=== PATIENT | male | born 1990 | race Caucasian/White ===

== ENCOUNTER 2021-09-05 12:19 | Outpatient (CLI) | payer BC, SELFPAY ==
--- NOTE | 2021-09-05 | VAS_PTH ---
PATIENT: LUCIANO LYN LOC: [facility] U#:[id number] AGE/SX: 31/M ROOM: RE09/05/[address]: Dr. Thien Wray MD : 1990 BED: DIS: 09/05/2021 SPEC #: [id number] RECD: 09/05/21 12:12 STATUS: YUKO SERENA #: [id number] DREW: 09/05/21 00:[address]: Thien Wray DEPT: SURGICAL PATHOLOGY RECD BY: Josr Hardy ENTERED: 09/05/21 14:21 SP TYPE: VAS OTHR DR: Dr. Crow Boateng MD Tissues: A - Vas deferens, NOS B - Vas deferens, NOS Procedures: Surgery Specimen Level II HEADER OPERATION: Bilateral partial vasectomy PRE-OP DIAGNOSIS: Sterilization TISSUE SUBMITTED: A. Right vas deferens, B. Left vas deferens MICROSCOPIC DIAGNOSIS A. Right vas deferens, partial vasectomy: Completely transected segment of vas deferens, no pathologic diagnosis. B. Left vas deferens, partial vasectomy: Completely transected segment of vas deferens, no pathologic diagnosis. VENESSA:luis 09/08/2021 MICROSCOPIC DESCRIPTION Slides are reviewed. GROSS DESCRIPTION A - Received is one container designated right vas deferens. The specimen consists of a cylindrical segment of pink-echevarria soft tissue measuring 1.5 cm in length and 0.2 cm in maximum diameter. The specimen is serially sectioned and totally submitted in one cassette. B - Received is one container designated left vas deferens. The specimen consists of a cylindrical segment of pink-echevarria soft tissue measuring 2 cm in length and 0.2 cm in maximum diameter. The specimen is serially sectioned and totally submitted in one cassette. / AM:luis 09/05/2021 TC:4 CPT: 27734 x2
== END 2021-09-05 23:59 | disposition short-term general hospital (02) ==
LOC: LABSPEC 13:05
PROVIDERS: PCP Family Medicine; Visit Provider Surgery
DX: Z30.2 Encounter for sterilization (principal)
CPT/HCPCS: 88302